=== PATIENT | male | born 1935 ===

== ENCOUNTER 2017-02-09 16:44 | Emergency (ER) | payer OTHER ==
[2017-02-09 16:57] VITALS: RESP 18
--- NOTE | 2017-02-09 17:45 | ED PDOC ---
HPI: Abdomen Time Seen by Provider: 02/09/17 17:20 Chief Complaint (Nursing): GI Problem Chief Complaint (Provider): Diarrhea History Per: Patient Additional Complaint(s): Patient is an 81 yo male, PMH of HTN, presents to ED for evaluation of loose, watery, non bloody stools ~ 5per day x 3 weeks. No associated nausea ro vomiting , no abdominal pain, fever or chills. Patient just returned 1 week ago from [place]. Pt saw a Dr while in [place] and was given Immodium. Past Medical History Reviewed: Nursing Documentation, Vital Signs Vital Signs: Last Vital Signs Temp 98.9 F 02/09/17 16:52 Pulse 84 02/09/17 16:52 Resp 18 02/09/17 16:52 BP 127/67 02/09/17 16:52 Pulse Ox 96 02/09/17 17:47 - Medical History PMH: HTN - Surgical History Surgical History: Hernia Repair - Family History Family History: States: Unknown Family Hx - Living Arrangements Living Arrangements: With Family - Social History Current smoker - smoking cessation education provided: No Alcohol: Social Drugs: Denies - Home Medications Home Medications: Ambulatory Orders Medication Instructions Recorded Ciprofloxacin [Cipro] 500 mg PO BID #6 tab 02/09/17 Dicyclomine [Bentyl] 10 mg PO QID PRN #10 cap 02/09/17 - Allergies Allergies/Adverse Reactions: Allergies Allergy/AdvReac Type Severity Reaction Status Date / Time aspirin Allergy RASH Verified 02/09/17 16:57 Penicillins Allergy RASH Verified 02/09/17 16:52 Review of Systems ROS Statement: Except As Marked, All Systems Reviewed And Found Negative Gastrointestinal: Positive for: Abdominal Pain, Diarrhea Physical Exam - Reviewed Nursing Documentation Reviewed: Yes Vital Signs Reviewed: Yes - Physical Exam Appears: Positive for: Well, Non-toxic, No Acute Distress Head Exam: Positive for: ATRAUMATIC, NORMAL INSPECTION, NORMOCEPHALIC Skin: Positive for: Normal Color, Warm, DRY Eye Exam: Positive for: EOMI, Normal appearance, PERRL ENT: Positive for: Normal ENT Inspection Neck: Positive for: Normal, Painless ROM Cardiovascular/Chest: Positive for: Regular Rate, Rhythm Respiratory: Positive for: CNT, Normal Breath Sounds Gastrointestinal/Abdominal: Positive for: Normal Exam, Bowel Sounds, Soft Back: Positive for: Normal Inspection Extremity: Positive for: Normal ROM Neurologic/Psych: Positive for: Alert, Oriented - Laboratory Results Result Diagrams: 02/09/17 17:43 02/09/17 17:43 - ECG O2 Sat by Pulse Oximetry: 96 Medical Decision Making Medical Decision Making: IV access established and treatment initiated with IVF and Bentyl Pt able to provide stool sample which was sent to lab CBC and COMP results discussed with pt who demonstrated full understanding Pt doing well on re-eval, abdomen soft non tender and non distended Pt afebrile, stable for discharge on re-eval Advised to follow up with PMD, return to ED with any concerns Disposition - Clinical Impression Clinical Impression: Diarrhea - Patient ED Disposition Is Patient to be Admitted: No - Disposition Disposition: Routine/Home Disposition Time: 19:14 Condition: STABLE Prescriptions: Ciprofloxacin [Cipro] 500 mg PO BID #6 tab Dicyclomine [Bentyl] 10 mg PO QID PRN #10 cap PRN Reason: Pain, Mild (1-3) Instructions: Acute Diarrhea (ED)
[2017-02-09 17:48] LABS: BASO # 0.1 K/uL (0.0-0.2); BASO % 0.7 % (0.0-2.0); EOS # 1.2 K/uL (0.0-0.7); EOS % 10.2 % (0.0-4.0); HEMOGLOBIN 13.8 g/dL (12.0-18.0); LYMPH # 1.7 K/uL (1.0-4.3); LYMPH % 14.5 % (20.0-40.0); MEAN CELL VOLUME 87.5 fl (80.0-94.0); MEAN CORPUSCULAR HEMOGLOBIN 28.6 pg (27.0-31.0); MEAN CORPUSCULAR HGB CONC 32.7 g/dL (33.0-37.0); MEAN PLATELET VOLUME 7.3 fl (7.2-11.7); MONO # 1.2 K/uL (0.0-0.8); NEUT # 7.6 K/uL (1.8-7.0); NEUT % 64.6 % (50.0-75.0); RBC 4.81 Mil/uL (4.40-5.90); RED CELL DISTRIBUTION WIDTH 13.8 % (11.5-14.5); WHITE BLOOD COUNT 11.7 K/uL (4.8-10.8)
[2017-02-09 18:00] LABS: ALB/GLOB RATIO 1.2 (1.0-2.1); ALBUMIN 4.3 g/dL (3.5-5.0)
[2017-02-09 19:32] VITALS: BP 111/72; PULSE 79; TEMP 98.7; O2SAT 98
[2017-02-09 19:46] LABS: URINE BACTERIA RARE (<OCC); URINE BILIRUBIN NEGATIVE (NEGATIVE); URINE BLOOD NEGATIVE (NEGATIVE); URINE CLARITY CLEAR (Clear); URINE COLOR YELLOW (YELLOW); URINE GLUCOSE (UA) NEG (Normal); URINE LEUKOCYTE ESTERASE NEG Leu/uL (Negative); URINE NITRATE NEGATIVE (NEGATIVE); URINE PROTEIN NEGATIVE (NEGATIVE); URINE UROBILINOGEN 0.2-1.0 mg/dL (0.2-1.0)
== END 2017-02-09 19:32 | disposition home or self-care (01) ==
LOC: H.ER 16:44
DX: R19.7 Diarrhea, unspecified (principal); I10 Essential (primary) hypertension

== ENCOUNTER 2017-02-23 18:01 | Emergency (ER) | payer MEDICARE, OTHER ==
[2017-02-23 18:09] VITALS: RESP 16; O2SAT 100
[2017-02-23] MEDS ORDERED: Ciprofloxacin 400mg/200ml D5W 400 MG/200 ML BAG IVPB STA (18:37)
--- NOTE | 2017-02-23 18:39 | ED PDOC ---
HPI: Abdomen Time Seen by Provider: 02/23/17 18:27 Chief Complaint (Nursing): GI Problem Chief Complaint (Provider): Diarrhea History Per: Patient Additional Complaint(s): 81 yo male, no PMH, presents to ED for the second time since 02/09 for evaluation of continued diarrhea x a few days. Pt was sent home on Cipro and Bentyl, which he states helped and then when medications complete, symptoms returned. No abdominal pain, fever, chills, nausea or vomiting. Past Medical History Reviewed: Nursing Documentation, Vital Signs Vital Signs: Last Vital Signs Temp 98.0 F 02/23/17 18:06 Pulse 86 02/23/17 18:06 Resp 16 02/23/17 18:06 BP 118/64 02/23/17 18:06 Pulse Ox 100 02/23/17 18:41 - Medical History PMH: HTN - Surgical History Surgical History: Hernia Repair - Family History Family History: States: Unknown Family Hx - Home Medications Home Medications: Ambulatory Orders Medication Instructions Recorded Ciprofloxacin [Cipro] 500 mg PO BID #6 tab 02/09/17 Dicyclomine [Bentyl] 10 mg PO QID PRN #10 cap 02/09/17 - Allergies Allergies/Adverse Reactions: Allergies Allergy/AdvReac Type Severity Reaction Status Date / Time aspirin Allergy RASH Verified 02/23/17 18:06 Iodine and Iodide Containing Allergy REDNESS Verified 02/23/17 19:03 Produc Penicillins Allergy RASH Verified 02/23/17 18:06 Review of Systems ROS Statement: Except As Marked, All Systems Reviewed And Found Negative Gastrointestinal: Positive for: Diarrhea Physical Exam - Reviewed Nursing Documentation Reviewed: Yes Vital Signs Reviewed: Yes - Physical Exam Appears: Positive for: Well, Non-toxic, No Acute Distress Head Exam: Positive for: ATRAUMATIC, NORMAL INSPECTION, NORMOCEPHALIC Skin: Positive for: Normal Color, Warm, DRY Eye Exam: Positive for: EOMI, Normal appearance, PERRL ENT: Positive for: Normal ENT Inspection Neck: Positive for: Normal, Painless ROM Cardiovascular/Chest: Positive for: Regular Rate, Rhythm Respiratory: Positive for: CNT, Normal Breath Sounds Gastrointestinal/Abdominal: Positive for: Normal Exam, Bowel Sounds, Soft. Negative for: Tenderness, Distended, Guarding Back: Positive for: Normal Inspection Extremity: Positive for: Normal ROM Neurologic/Psych: Positive for: Alert, Oriented - ECG O2 Sat by Pulse Oximetry: 100 Medical Decision Making Medical Decision Making: IV access established and treatment initiated with IVF, IV Cipro and Bentyl Stool sample neg for C. Diff on visit from 02/09 Case endorsed to [facility] at 1999 pending diagnostic review and re-eval Disposition - Clinical Impression Clinical Impression: Diarrhea - Patient ED Disposition Is Patient to be Admitted: [facility] - Disposition Disposition Time: 20:00 Condition: STABLE
[2017-02-23] MEDS ORDERED: Iohexol 240 (50 ml) PO ONE (18:41)
[2017-02-23] MEDS ORDERED: Ciprofloxacin 400mg/200ml D5W 400 MG/200 ML BAG IVPB ONE (18:43)
[2017-02-23 18:49] LABS: BASO % 0.6 % (0.0-2.0); EOS # 0.9 K/uL (0.0-0.7); EOS % 11.5 % (0.0-4.0); HEMOGLOBIN 13.7 g/dL (12.0-18.0); LYMPH # 1.5 K/uL (1.0-4.3); LYMPH % 19.4 % (20.0-40.0); MEAN CELL VOLUME 87.4 fl (80.0-94.0); MEAN CORPUSCULAR HEMOGLOBIN 28.8 pg (27.0-31.0); MEAN CORPUSCULAR HGB CONC 32.9 g/dL (33.0-37.0); MEAN PLATELET VOLUME 7.6 fl (7.2-11.7); MONO # 0.9 K/uL (0.0-0.8); MONO % 11.9 % (0.0-10.0); NEUT # 4.4 K/uL (1.8-7.0); NEUT % 56.6 % (50.0-75.0); RBC 4.76 Mil/uL (4.40-5.90); RED CELL DISTRIBUTION WIDTH 13.9 % (11.5-14.5); WHITE BLOOD COUNT 7.7 K/uL (4.8-10.8)
[2017-02-23] MEDS ORDERED: Iohexol 240 (50 ml) ONE (18:52)
[2017-02-23 18:55] LABS: ALB/GLOB RATIO 1.3 (1.0-2.1); ALBUMIN 4.5 g/dL (3.5-5.0); CALCIUM 9.1 mg/dL (8.4-10.2)
[2017-02-23 19:04] LABS: URINE BACTERIA FEW (<OCC); URINE BILIRUBIN NEGATIVE (NEGATIVE); URINE BLOOD NEGATIVE (NEGATIVE); URINE CLARITY CLEAR (Clear); URINE COLOR YELLOW (YELLOW); URINE GLUCOSE (UA) NEG (Normal); URINE LEUKOCYTE ESTERASE NEG Leu/uL (Negative); URINE NITRATE NEGATIVE (NEGATIVE); URINE PROTEIN NEGATIVE (NEGATIVE); URINE UROBILINOGEN 0.2-1.0 mg/dL (0.2-1.0)
[2017-02-23] MEDS ORDERED: Iohexol 300 50 ML ONE (20:21)
[2017-02-23] MEDS ORDERED: Sodium Chloride 0.9% 50 ML IV ONE (20:21)
--- NOTE | 2017-02-23 21:42 | CT ---
EXAM: CT Abdomen and Pelvis With Intravenous Contrast CLINICAL HISTORY: 81 years old, male; Signs and symptoms; Nausea and other: Diahhrea; Prior surgery; Surgery date: 6+ months; Surgery type: Hernia surgery; Additional info: Diarrhea and abdominal cramping since 02/09 TECHNIQUE: Axial computed tomography images of the abdomen and pelvis with intravenous contrast. This CT exam was performed using one or more of the following dose reduction techniques: automated exposure control, adjustment of the mA and/or kV according to patient size, and/or use of iterative reconstruction technique. Coronal and sagittal reformatted images were created and reviewed. CONTRAST: 95 mL of omnipaque administered intravenously. EXAM DATE/TIME: 02/23/2017 6:41 PM COMPARISON: There are no prior studies for comparison. FINDINGS: Lower thorax: The heart is mildly enlarged. There are fibrotic changes at the lung bases. There are multiple surgical clips at the right base. There is a small hiatal hernia ABDOMEN: Liver: There is fatty infiltration of the liver. Gallbladder and bile ducts: Gallbladder is partially distended. Common bile duct is prominent. Pancreas: Pancreas is mildly atrophic. Spleen: unremarkable Adrenals: unremarkable Kidneys and ureters: Right kidney and ureter are unremarkable. Left kidney is severely atrophic.There is no pelvocaliectasis or ureterectasis. Stomach and bowel: Stomach is almost empty. Rotation is normal. There is no obstruction. Appendix is unremarkable. Terminal ileum is unremarkable. There is contrast and air throughout the colon. There is sigmoid diverticulosis. There is mild mesenteric hyperemia adjacent to the sigmoid. Appendix: See stomach and bowel PELVIS: Bladder: Bladder is partially distended. There is bladder wall thickening. Reproductive: The prostate is enlarged.Seminal vesicles have the expected configuration. ABDOMEN and PELVIS: Intraperitoneal space: There is no free air or free fluid. Bones/joints: Bony structures are osteopenic.There are degenerative changes in the osseus structures. Soft tissues: There is a small fat containing umbilical hernia. There is a small nodular opacity in the left inguinal region. Vasculature: Aorta is mildly ectatic. There are vascular calcifications. There is narrowing at the origin of the celiac artery with mild poststenotic dilatation. There is calcified plaque at the origin of the superior mesenteric artery. There is plaque with marked narrowing and decreased perfusion of the left renal artery There is noncalcified plaque/mural thrombus in the infrarenal abdominal aorta. There are area is of ulceration. There is mild ectasia. Maximal diameter is approximately 2.9 cm. Proximal iliacs are prominent, 1.5 cm in diameter bilaterally. 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
--- NOTE | 2017-02-23 21:45 | ED PDOC ---
- Laboratory Results Result Diagrams: 02/23/17 18:42 02/23/17 18:39 - ECG O2 Sat by Pulse Oximetry: 100 - Progress ED Course And Treament: Case endorsed to contract technical writer from [facility] pending CT. EXAM: CT Abdomen and Pelvis With Intravenous Contrast CLINICAL HISTORY: 81 years old, male; Signs and symptoms; Nausea and other: Diahhrea; Prior surgery; Surgery date: 6+ months; Surgery type: Hernia surgery; Additional info: Diarrhea and abdominal cramping since 02/09 TECHNIQUE: Axial computed tomography images of the abdomen and pelvis with intravenous contrast. This CT exam was performed using one or more of the following dose reduction techniques : automated exposure control, adjustment of the mA and/or kV according to patient size, and/ or use of iterative reconstruction technique. Coronal and sagittal reformatted images were created and reviewed. CONTRAST: 95 mL of omnipaque administered intravenously. EXAM DATE/TIME: 02/23/2017 6:41 PM COMPARISON: There are no prior studies for comparison. FINDINGS: Lower thorax: The heart is mildly enlarged. There are fibrotic changes at the lung bases. There are multiple surgical clips at the right base. There is a small hiatal hernia ABDOMEN: Liver: There is fatty infiltration of the liver. Gallbladder and bile ducts: Gallbladder is partially distended. Common bile duct is prominent. Pancreas: Pancreas is mildly atrophic. Spleen: unremarkable Adrenals: unremarkable Kidneys and ureters: Right kidney and ureter are unremarkable. Left kidney is severely atrophic.There is no pelvocaliectasis or ureterectasis. Stomach and bowel: Stomach is almost empty. Rotation is normal. There is no obstruction. Appendix is unremarkable. Terminal ileum is unremarkable. There is contrast and air throughout the colon. There is sigmoid diverticulosis. There is mild mesenteric hyperemia adjacent to the sigmoid. Appendix: See stomach and bowel PELVIS: Bladder: Bladder is partially distended. There is bladder wall thickening. Reproductive: The prostate is enlarged.Seminal vesicles have the expected configuration. ABDOMEN and PELVIS: Intraperitoneal space: There is no free air or free fluid. Bones/joints: Bony structures are osteopenic.There are degenerative changes in the osseus structures. Soft tissues: There is a small fat containing umbilical hernia. There is a small nodular opacity in the left inguinal region. Vasculature: Aorta is mildly ectatic. There are vascular calcifications. There is narrowing at the origin of the celiac artery with mild poststenotic dilatation. There is calcified plaque at the origin of the superior mesenteric artery. There is plaque with marked narrowing and decreased perfusion of the left renal artery There is noncalcified plaque/mural thrombus in the infrarenal abdominal aorta. There are area is of ulceration. There is mild ectasia. Maximal diameter is approximately 2.9 cm. Proximal iliacs are prominent, 1.5 cm in diameter bilaterally. 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 Case discussed with ED attending Dr. Mcnally, who evaluated patient at bedside. Patient offered admission vs outpatient trial of Cipro, Flagyl; states he is feeling better and would like to go home. Vitals stable. Labs WNL. Patient given IV cipro, IV flagyl dose in ED, discharged with rx Cipro, Flagyl, Bentyl. Advised patient/family to follow up with PMD/GI. Return to ED for worsening/concerning symptoms. Disposition - Clinical Impression Clinical Impression: Diverticulitis - POA Present On Arrival: None - Disposition Referrals: Anuj Boo MD, PhD [Staff Provider] - Disposition: Routine/Home Disposition Time: 22:50 Condition: IMPROVED Prescriptions: Ciprofloxacin HCl [Cipro] 500 mg PO BID #20 tab Dicyclomine [Dicyclomine HCl] 10 mg PO QID PRN #10 cap PRN Reason: Pain, Mild (1-3) Metronidazole [Flagyl] 500 mg PO TID #30 tablet Instructions: Diverticulitis (ED) Print Language: MACEDONIAN
[2017-02-23] MEDS ORDERED: metroNIDAZOLE 500mg/100ml NS 100 ML IV STA (21:53)
[2017-02-23 23:14] VITALS: BP 135/80; PULSE 85; TEMP 97.9
== END 2017-02-23 23:15 | disposition home or self-care (01) ==
LOC: H.ER 18:01
DX: K57.30 Diverticulosis of large intestine without perforation or abscess without bleeding (principal); I10 Essential (primary) hypertension; K76.0 Fatty (change of) liver, not elsewhere classified; Z88.0 Allergy status to penicillin
CPT/HCPCS: 74177; 80053; 81003; 85025; 87045; 96360; 96372; 99284; J0500; J0744; Q9966; Q9967

== ENCOUNTER 2018-01-10 15:30 | Inpatient (IN) | payer MEDICARE, OTHER ==
[2018-01-10] MEDS ORDERED: Sodium Chloride 0.9% 1,000 ML IV STA ×2 (17:56→19:01)
[2018-01-10] MEDS ORDERED: Albuterol-Ipratrop 3 mg / 0.5 (3 ml) UD INH STA (17:56)
[2018-01-10 18:27] LABS: VENOUS BLOOD GAS BASE EXCESS 4.5 mmol/L (0.0-2.0); VENOUS BLOOD GAS PCO2 58 mmHg (40-60); VENOUS BLOOD GAS PO2 14 mm/Hg (30-55); VENOUS BLOOD PH 7.35 (7.32-7.43)
[2018-01-10] MEDS ORDERED: levoFLOXacin 750 mg in D5W 150 ML BAG IVPB STA (18:30)
[2018-01-10 18:39] LABS: BASO # 0.1 K/uL (0.0-0.2); BASO % 0.5 % (0.0-2.0); EOS % 0.2 % (0.0-4.0); HEMOGLOBIN 14.7 g/dL (12.0-18.0); LYMPH # 1.3 K/uL (1.0-4.3); LYMPH % 7.4 % (20.0-40.0); MEAN CELL VOLUME 85.3 fl (80.0-94.0); MEAN CORPUSCULAR HEMOGLOBIN 28.7 pg (27.0-31.0); MEAN CORPUSCULAR HGB CONC 33.7 g/dL (33.0-37.0); MEAN PLATELET VOLUME 7.6 fl (7.2-11.7); MONO # 1.9 K/uL (0.0-0.8); MONO % 10.3 % (0.0-10.0); NEUT # 14.9 K/uL (1.8-7.0); NEUT % 81.6 % (50.0-75.0); PLATELET COUNT 218 K/uL (130-400); RBC 5.11 Mil/uL (4.40-5.90); RED CELL DISTRIBUTION WIDTH 13.9 % (11.5-14.5); WHITE BLOOD COUNT 18.3 K/uL (4.8-10.8)
[2018-01-10] MEDS ORDERED: Albuterol-Ipratrop 3 mg / 0.5 (3 ml) UD ONE (18:43)
[2018-01-10] MEDS ORDERED: levoFLOXacin 750 mg in D5W 750 MG/150 ML BAG IVPB ONE (18:45)
[2018-01-10 18:48] LABS: ALBUMIN 4.5 g/dL (3.5-5.0); ALT/SGPT 26 U/L (21-72); AST/SGOT 26 U/L (17-59); BLOOD UREA NITROGEN 23 mg/dl (9-20); CALCIUM 9.6 mg/dL (8.4-10.2); GFR AFRICAN-AMERICAN 54; GFR NON-AFRICAN AMERICAN 45
[2018-01-10 18:55] LABS: URINE BILIRUBIN NEGATIVE (NEGATIVE); URINE CLARITY CLEAR (Clear); URINE COLOR YELLOW (YELLOW); URINE GLUCOSE (UA) NEG (Normal); URINE LEUKOCYTE ESTERASE NEG Leu/uL (Negative); URINE PROTEIN 30 mg/dL (NEGATIVE)
[2018-01-10 18:56] LABS: URINE BLOOD TRACE (NEGATIVE)
[2018-01-10 18:58] LABS: INR 1.1 (0.9-1.2); PARTIAL THROMBOPLASTIN TIME 28.1 Seconds (25.6-37.1); PROTHROMBIN TIME 12.1 Seconds (9.8-13.1)
[2018-01-10 19:00] LABS: B-TYPE NATRIURETIC PEPTIDE 156 pg/ml (0-900)
[2018-01-10] MEDS ORDERED: MethylPREDNISolone 40 mg Vial IVP ONE (19:04)
--- NOTE | 2018-01-10 19:07 | ED PDOC ---
HPI: General Adult Time Seen by Provider: 01/10/18 17:08 Chief Complaint (Nursing): Fever Chief Complaint (Provider): fever cough weakness History Per: Patient, Family History/Exam Limitations: no limitations Onset/Duration Of Symptoms: Days (4-5), Gradual Current Symptoms Are (Timing): Still Present Severity: Moderate Additional Complaint(s): 82yo male hx chronic lung disease, HTN, presents c/o cough, fever, generalized weakness and SOB ongoing for 3-4 days. Denies syncope, orthopnea, edema. No recent Abx or steroid use, does take advair BID. Gets primary care in [place], in for last several months. Past Medical History Reviewed: Historical Data, Nursing Documentation, Vital Signs Vital Signs: Last Vital Signs Temp 100.0 F H 01/10/18 18:46 Pulse 120 H 01/10/18 17:49 Resp 22 01/10/18 17:49 BP 138/73 01/10/18 17:49 Pulse Ox 96 01/10/18 17:49 - Medical History PMH: COPD, HTN Denies: Chronic Kidney Disease - Surgical History Surgical History: Hernia Repair - Family History Family History: States: Unknown Family Hx - Living Arrangements Living Arrangements: With Family - Social History Current smoker - smoking cessation education provided: No - Immunization History Hx Tetanus Toxoid Vaccination: No Hx Influenza Vaccination: Yes Hx Pneumococcal Vaccination: Yes - Home Medications Home Medications: Ambulatory Orders Medication Instructions Recorded Ciprofloxacin [Cipro] 500 mg PO BID #6 tab 02/09/17 Dicyclomine [Bentyl] 10 mg PO QID PRN #10 cap 02/09/17 Ciprofloxacin HCl [Cipro] 500 mg PO BID #20 tab 02/23/17 Dicyclomine [Dicyclomine HCl] 10 mg PO QID PRN #10 cap 02/23/17 Metronidazole [Flagyl] 500 mg PO TID #30 tablet 02/23/17 - Allergies Allergies/Adverse Reactions: Allergies Allergy/AdvReac Type Severity Reaction Status Date / Time aspirin Allergy RASH Verified 02/23/17 18:06 Iodine and Iodide Containing Allergy REDNESS Verified 02/23/17 19:03 Produc Penicillins Allergy RASH Verified 02/23/17 18:06 Review of Systems Constitutional: Positive for: Fever, Weakness, Malaise ENT: Positive for: Throat Pain Cardiovascular: Negative for: Chest Pain, Orthopnea Respiratory: Positive for: Cough, Shortness of Breath, SOB with Exertion, Pleuritic Pain, Sputum, Wheezing Gastrointestinal: Negative for: Nausea, Abdominal Pain Genitourinary Male: Negative for: Frequency Musculoskeletal: Negative for: Neck Pain Skin: Negative for: Rash, Lesions, Jaundice Neurological: Negative for: Weakness, Headache, Dizziness Psych: Negative for: Depression Physical Exam - Reviewed Nursing Documentation Reviewed: Yes Vital Signs Reviewed: Yes - Physical Exam Appears: Positive for: Well, Non-toxic, No Acute Distress Head Exam: Positive for: ATRAUMATIC, NORMAL INSPECTION, NORMOCEPHALIC Skin: Positive for: Normal Color, Warm, DRY Eye Exam: Positive for: EOMI, Normal appearance, PERRL ENT: Positive for: Normal ENT Inspection Neck: Positive for: Normal, Painless ROM Cardiovascular/Chest: Positive for: Regular Rate, Rhythm Respiratory: Positive for: Decreased Breath Sounds, Rhonchi, Respiratory Distress (mild) Gastrointestinal/Abdominal: Positive for: Normal Exam, Soft Back: Positive for: Normal Inspection Extremity: Positive for: Normal ROM Neurologic/Psych: Positive for: Alert, Oriented - Laboratory Results Result Diagrams: 01/10/18 18:32 01/10/18 18:32 - ECG ECG: Positive for: Interpreted By Ms ECG Rhythm: Positive for: Sinus Tachycardia, Nonspecific Changes Rate: 115 O2 Sat by Pulse Oximetry: 96 Pulse Ox Interpretation: Normal - Radiology X-Ray: Interpreted by Ms X-Ray Interpretation: Infiltrates Medical Decision Making Medical Decision Making: sepsis workup initiated given low grade fever, tachycardia, clinical presentation labs reveal elevated WBC at 18 Lactate elev 2.5 BNP neg Abx initiated, allergic PCN Cultures obtained prior to Abx initiation 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 This is because of the severity of symptoms shown, intensity of services needed, and/or the medical risk in this patient being treated as an outpatient. - POA Present On Arrival: None
[2018-01-10 19:52] LABS: VENOUS BLOOD GAS BASE EXCESS 3.1 mmol/L (0.0-2.0); VENOUS BLOOD GAS PCO2 53 mmHg (40-60); VENOUS BLOOD GAS PO2 16 mm/Hg (30-55); VENOUS BLOOD PH 7.36 (7.32-7.43)
[2018-01-10 20:43] LABS: LYMPHOCYTE 3 % (20-50); MONOCYTE 5 % (0-10); NEUTROPHIL 84 % (42-75); REACTIVE LYMPHOCYTES 8 % (0-0); TOTAL CELLS COUNTED 100
[2018-01-10 20:44] LABS: PLATELET ESTIMATE NORMAL (NORMAL)
[2018-01-11] MEDS ORDERED: Sodium Chloride 0.9% 1,000 ML IV STA (00:19)
[2018-01-11] MEDS ORDERED: MethylPREDNISolone 40 mg Vial ONE (00:23)
[2018-01-11] MEDS ORDERED: Sodium Chloride 3% for Inhalation 4 ML VIAL.NEB IH PRN (06:11)
[2018-01-11] MEDS: Dextrose 5%/0.45% NS 1,000 ML IV SCH ×2 (06:22→21:08)
[2018-01-11 07:47] LABS: HEMOGLOBIN 13.5 g/dL (12.0-18.0); MEAN CELL VOLUME 85.5 fl (80.0-94.0); MEAN CORPUSCULAR HEMOGLOBIN 28.5 pg (27.0-31.0); MEAN CORPUSCULAR HGB CONC 33.3 g/dL (33.0-37.0); RBC 4.75 Mil/uL (4.40-5.90); RED CELL DISTRIBUTION WIDTH 14.1 % (11.5-14.5); WHITE BLOOD COUNT 15.1 K/uL (4.8-10.8)
[2018-01-11 08:03] LABS: CALCIUM 9.2 mg/dL (8.4-10.2)
[2018-01-11] MEDS: Albuterol-Ipratrop 3 mg / 0.5 (3 ml) UD INH SCH ×3 (08:13→15:38)
--- NOTE | 2018-01-11 08:24 | CP.PCM.HP ---
History of Present Illness - History of Present Illness History of Present Illness: 82 yr old male with c/o fever,chills and sob with cough x 4v days.Hx of chronic pulmonary disease and hypertension. Recently arrived from [place]. FOUND TO HAVE LOW BLOOD PRESSURE AND EVIDENCE OF SEPSIS IN ER. Present on Admission - Present on Admission Any Indicators Present on Admission: No Past Patient History - Past Social History Smoking Status: Former Smoker - CARDIAC Hx Cardiac Disorders: Yes Hx Hypertension: Yes - PULMONARY Hx Chronic Obstructive Pulmonary Disease (COPD): Yes - NEUROLOGICAL Hx Neurological Disorder: No - HEENT Hx HEENT Problems: No - RENAL Hx Chronic Kidney Disease: No - ENDOCRINE/METABOLIC Hx Endocrine Disorders: No - HEMATOLOGICAL/ONCOLOGICAL Hx Blood Disorders: No - INTEGUMENTARY Hx Dermatological Problems: No - MUSCULOSKELETAL/RHEUMATOLOGICAL Hx Falls: Yes - GASTROINTESTINAL Hx Gastrointestinal Disorders: No - GENITOURINARY/GYNECOLOGICAL Hx Genitourinary Disorders: No - PSYCHIATRIC Hx Substance Use: No - SURGICAL HISTORY Hx Surgeries: Yes Hx Herniorrhaphy: Yes - ANESTHESIA Hx Anesthesia: Yes Hx Anesthesia Reactions: No Hx Malignant Hyperthermia: No Meds Allergies/Adverse Reactions: Allergies Allergy/AdvReac Type Severity Reaction Status Date / Time aspirin Allergy RASH Verified 02/23/17 18:06 Iodine and Iodide Containing Allergy REDNESS Verified 02/23/17 19:03 Produc Penicillins Allergy RASH Verified 02/23/17 18:06 Physical Exam - Constitutional Appears: Chronically Ill - Head Exam Head Exam: ATRAUMATIC, NORMAL INSPECTION, NORMOCEPHALIC - Eye Exam Eye Exam: EOMI, Normal appearance, PERRL Pupil Exam: NORMAL ACCOMODATION, PERRL - ENT Exam ENT Exam: Mucous Membranes Moist, Normal Exam - Neck Exam Neck exam: Positive for: Normal Inspection - Respiratory Exam Respiratory Exam: Decreased Breath Sounds, Prolonged Expiratory Phase, Rales, Wheezes, NORMAL BREATHING PATTERN - Cardiovascular Exam Cardiovascular Exam: REGULAR RHYTHM - GI/Abdominal Exam GI & Abdominal Exam: Normal Bowel Sounds, Soft. absent: Tenderness - Rectal Exam Rectal Exam: NORMAL INSPECTION - Extremities Exam Extremities exam: Positive for: normal inspection - Back Exam Back exam: NORMAL INSPECTION - Neurological Exam Neurological exam: Alert, CN II-XII Intact, Normal Gait, Oriented x3, Reflexes Normal - Psychiatric Exam Psychiatric exam: Normal Affect, Normal Mood - Skin Skin Exam: Dry, Intact, Normal Color, Warm Results - Vital Signs Recent Vital Signs: Last Vital Signs Temp 97.4 F L 01/11/18 07:50 Pulse 57 L 01/11/18 07:50 Resp 18 01/11/18 07:50 BP 95/57 L 01/11/18 07:50 Pulse Ox 100 01/11/18 07:50 - Labs Result Diagrams: 01/11/18 07:30 01/11/18 07:30 Labs: Laboratory Results - last 24 hr 01/10/18 01/10/18 01/10/18 18:23 18:32 18:32 WBC 18.3 H D RBC 5.11 Hgb 14.7 Hct 43.6 MCV 85.3 D MCH 28.7 MCHC 33.7 RDW 13.9 Plt Count 218 MPV 7.6 Neut % (Auto) 81.6 H Lymph % (Auto) 7.4 L [place] % (Auto) 10.3 H Eos % (Auto) 0.2 Baso % (Auto) 0.5 Neut # (Auto) 14.9 H Lymph # (Auto) 1.3 [place] # (Auto) 1.9 H Eos # (Auto) 0.0 Baso # (Auto) 0.1 Neutrophils % (Manual) 84 H Lymphocytes % (Manual) 3 L Reactive Lymphs % 8 H Monocytes % (Manual) 5 Platelet Estimate Normal RBC Morphology Normal PT INR APTT pO2 14 L VBG pH 7.35 VBG pCO2 58 VBG HCO3 26.1 VBG Total CO2 33.8 H VBG O2 Sat (Calc) 25.1 L VBG Base Excess 4.5 H VBG Potassium 4.7 Sodium 136.0 140 Chloride 98.0 96 L Glucose 113 H Lactate 2.5 H FiO2 21.0 Crit Value Called To dr rui sky Crit Value Called By Blood Gas Notified Time 1829 Potassium 4.9 Carbon Dioxide 28 Anion Gap 21 H BUN 23 H Creatinine 1.5 Est GFR ( Amer) 54 Est GFR (Non-Af Amer) 45 Random Glucose 113 H Lactic Acid Calcium 9.6 Total Bilirubin 1.2 AST 26 ALT 26 Alkaline Phosphatase 76 Troponin I < 0.0120 NT-Pro-B Natriuret Pep 156 Total Protein 9.0 H Albumin 4.5 Globulin 4.5 H Albumin/Globulin Ratio 1.0 Venous Blood Potassium 4.7 Urine Color Urine Clarity Urine pH Ur Specific [place] Urine Protein Urine Glucose (UA) Urine Ketones Urine Blood Urine Nitrate Urine Bilirubin Urine Urobilinogen Ur Leukocyte Esterase Urine RBC (Auto) Urine Microscopic WBC 01/10/18 01/10/18 01/10/18 18:32 18:39 19:29 WBC RBC Hgb Hct MCV MCH MCHC RDW Plt Count MPV Neut % (Auto) Lymph % (Auto) [place] % (Auto) Eos % (Auto) Baso % (Auto) Neut # (Auto) Lymph # (Auto) [place] # (Auto) Eos # (Auto) Baso # (Auto) Neutrophils % (Manual) Lymphocytes % (Manual) Reactive Lymphs % Monocytes % (Manual) Platelet Estimate RBC Morphology PT 12.1 INR 1.1 APTT 28.1 pO2 16 L VBG pH 7.36 VBG pCO2 53 VBG HCO3 25.2 VBG Total CO2 31.5 H VBG O2 Sat (Calc) 27.3 L VBG Base Excess 3.1 H VBG Potassium 4.4 Sodium 135.0 Chloride 97.0 L Glucose 138 H Lactate 2.9 H FiO2 21.0 Crit Value Called To dr rui sky Crit Value Called By Blood Gas Notified Time 1951 Potassium Carbon Dioxide Anion Gap BUN Creatinine Est GFR ( Amer) Est GFR (Non-Af Amer) Random Glucose Lactic Acid Calcium Total Bilirubin AST ALT Alkaline Phosphatase Troponin I NT-Pro-B Natriuret Pep Total Protein Albumin Globulin Albumin/Globulin Ratio Venous Blood Potassium 4.4 Urine Color Yellow Urine Clarity Clear Urine pH 7.0 Ur Specific [place] 1.024 Urine Protein 30 Urine Glucose (UA) Neg Urine Ketones Negative Urine Blood Trace Urine Nitrate Negative Urine Bilirubin Negative Urine Urobilinogen 4.0 Ur Leukocyte Esterase Neg Urine RBC (Auto) 12 H Urine Microscopic WBC 1 01/11/18 01/11/18 01/11/18 07:30 07:30 07:30 WBC 15.1 H RBC 4.75 Hgb 13.5 Hct 40.6 MCV 85.5 MCH 28.5 MCHC 33.3 RDW 14.1 Plt Count 196 MPV Neut % (Auto) Lymph % (Auto) [place] % (Auto) Eos % (Auto) Baso % (Auto) Neut # (Auto) Lymph # (Auto) [place] # (Auto) Eos # (Auto) Baso # (Auto) Neutrophils % (Manual) Lymphocytes % (Manual) Reactive Lymphs % Monocytes % (Manual) Platelet Estimate RBC Morphology PT INR APTT pO2 VBG pH VBG pCO2 VBG HCO3 VBG Total CO2 VBG O2 Sat (Calc) VBG Base Excess VBG Potassium Sodium 144 Chloride 105 Glucose Lactate FiO2 Crit Value Called To Crit Value Called By Blood Gas Notified Time Potassium 5.1 H Carbon Dioxide 23 Anion Gap 21 H BUN 24 H Creatinine 1.4 Est GFR ( Amer) 59 Est GFR (Non-Af Amer) 49 Random Glucose 169 H Lactic Acid 2.2 H Calcium 9.2 Total Bilirubin AST ALT Alkaline Phosphatase Troponin I NT-Pro-B Natriuret Pep Total Protein Albumin Globulin Albumin/Globulin Ratio Venous Blood Potassium Urine Color Urine Clarity Urine pH Ur Specific [place] Urine Protein Urine Glucose (UA) Urine Ketones Urine Blood Urine Nitrate Urine Bilirubin Urine Urobilinogen Ur Leukocyte Esterase Urine RBC (Auto) Urine Microscopic WBC Assessment & Plan - Assessment and Plan (Free Text) Assessment: sepsis acute exac of pulmonary fibrosis and copd r/o superimposed community acquired pneumonia hx of hypertension Plan: continue rx as ordered infectious dz fredial
--- NOTE | 2018-01-11 08:44 | RAD ---
HISTORY: cough fever COMPARISON: Portable chest 04/07/2011. TECHNIQUE: Chest PA and lateral FINDINGS: LUNGS: No definite acute infiltrate bilaterally. Chronic fibrotic changes are again seen primarily at the bases with emphysematous changes reiterated at the upper lung zones bilaterally. Calcified granuloma partially obscured by telemetry leads in the right upper lung zone laterally. PLEURA: No significant pleural effusion identified. No pneumothorax apparent. CARDIOVASCULAR: Normal. OSSEOUS STRUCTURES: No significant abnormalities. VISUALIZED UPPER ABDOMEN: Normal. OTHER FINDINGS: None. IMPRESSION: Stable COPD and extensive chronic interstitial pulmonary changes without significant interval change compared to 04/07/2011.
[2018-01-11] MEDS ORDERED: Vancomycin 1 g Inj IVPB SCH (09:00)
[2018-01-11] MEDS ORDERED: methylPREDNISolone 40 MG in Sodium Chloride 0.9% 50 ML IVPB SCH (09:00)
[2018-01-11] MEDS: Fluticasone-Salmeterol 250-50mcg Diskus INH SCH ×2 (09:05→21:10)
[2018-01-11] MEDS: Enoxaparin 40 mg Syringe SC SCH (09:06)
[2018-01-11] MEDS: levoFLOXacin 500 mg in D5W 500 MG/100 ML BAG IVPB SCH (09:06)
[2018-01-11] MEDS: MethylPREDNISolone 40 mg Vial IVP SCH ×2 (09:26→21:09)
[2018-01-11] MEDS ORDERED: Levalbuterol 0.63 MG/3 ML Inhal Soln UD IH PRN (15:50)
--- NOTE | 2018-01-11 17:20 | CARD ---
APPROVED REPORT EKG Measurement Heart [id number] <Conclusion> Sinus tachycardia Otherwise normal ECG
[2018-01-12 06:38] LABS: CALCIUM 8.7 mg/dL (8.4-10.2)
[2018-01-12 06:43] LABS: BASO % 0.1 % (0.0-2.0); HEMOGLOBIN 11.9 g/dL (12.0-18.0); LYMPH # 0.7 K/uL (1.0-4.3); LYMPH % 3.7 % (20.0-40.0); MEAN CELL VOLUME 86.1 fl (80.0-94.0); MEAN CORPUSCULAR HEMOGLOBIN 28.6 pg (27.0-31.0); MEAN CORPUSCULAR HGB CONC 33.2 g/dL (33.0-37.0); MEAN PLATELET VOLUME 7.8 fl (7.2-11.7); MONO # 0.7 K/uL (0.0-0.8); MONO % 3.7 % (0.0-10.0); NEUT # 16.7 K/uL (1.8-7.0); NEUT % 92.5 % (50.0-75.0); NRBC % 0.1 % (0.0-0.0); PLATELET COUNT 200 K/uL (130-400); RBC 4.15 Mil/uL (4.40-5.90); WHITE BLOOD COUNT 18.1 K/uL (4.8-10.8)
[2018-01-12 07:11] LABS: BANDS 1 % (0-2); LYMPHOCYTE 3 % (20-50); MONOCYTE 2 % (0-10); NEUTROPHIL 94 % (42-75); PLATELET ESTIMATE NORMAL (NORMAL); TOTAL CELLS COUNTED 100
--- NOTE | 2018-01-12 08:38 | CON ---
INFECTIOUS DISEASE CONSULT DATE: HISTORY OF PRESENT ILLNESS: The patient is an 82-year-old male who came to the emergency with a 4-day history of fever, chills, and shortness of breath with productive cough. PAST MEDICAL HISTORY: The patient has a past history of COPD and hypertension. Apparently, he came here recently from [place]. No history of syncope or orthopnea. MEDICATIONS: Include Advair. SOCIAL HISTORY: The patient is a smoker and lives with his family. FAMILY HISTORY: He is not aware of his family history. PHYSICAL EXAMINATION: HEENT: Within normal limits. He states he has some difficulty swallowing. Atraumatic and normocephalic. NECK: Supple. HEART: Regular sinus rhythm. LUNGS: He has decreased breath sounds and rhonchi bilaterally. Apparently when he came in, he was in some respiratory distress. EXTREMITIES: No CCE. LABORATORY DATA: Cultures are pending. No previous cultures. Creatinine is 1.4. GFR is 49. WBC is 18.3 and followup is 15.1 and sed rate is 61. ASSESSMENT AND PLAN: At the present time, the patient has been placed on Levaquin and vancomycin. I have added clindamycin today. We will likely discontinue vancomycin tomorrow, but we will reevaluate at that time. Mango Chavez MD
--- NOTE | 2018-01-12 09:18 | CP.PCM.PN ---
Subjective - Date & Time of Evaluation Date of Evaluation: 01/12/18 Time of Evaluation: 09:18 - Subjective Subjective: FEELING BETTER OOB TO CHAIR COUGH AND SOB LESS Objective - Vital Signs/Intake and Output Vital Signs (last 24 hours): Temp Pulse Resp BP Pulse Ox 97.5 F L 80 18 125/74 98 01/12/18 07:59 01/12/18 07:59 01/12/18 07:59 01/12/18 07:59 01/12/18 07:59 - Medications Medications: Current Medications Enoxaparin Sodium (Lovenox) 40 mg SC DAILY JIN PRN Reason: Protocol Last Admin: 01/11/18 09:06 Dose: 40 mg Levofloxacin/Dextrose (Levaquin 500mg) 500 mg in 100 mls @ 100 mls/hr IVPB DAILY JIN PRN Reason: Protocol Last Admin: 01/11/18 09:06 Dose: 100 mls/hr Vancomycin HCl 1 gm/ Sodium (Chloride) 250 mls @ 166.667 mls/hr IVPB Q12 JIN Last Admin: 01/11/18 21:09 Dose: 166.667 mls/hr Clindamycin Phosphate (Cleocin) 600 mg in 50 mls @ 50 mls/hr IVPB Q12 JIN PRN Reason: Protocol Levalbuterol HCl (Xopenex) 0.63 mg IH Q8 PRN PRN Reason: Wheezing Methylprednisolone (Solu-Medrol) 40 mg IVP Q12 JIN Last Admin: 01/11/18 21:09 Dose: 40 mg Fluticasone/Salmeterol (Advair Diskus 250/50) 1 puff INH Q12 JIN Last Admin: 01/11/18 21:10 Dose: 1 puff - Labs Labs: 01/12/18 05:25 01/12/18 05:25 PT 12.1 Seconds (9.8-13.1) 01/10/18 18:32 INR 1.1 (0.9-1.2) 01/10/18 18:32 APTT 28.1 Seconds (25.6-37.1) 01/10/18 18:32 - Constitutional Appears: No Acute Distress - Head Exam Head Exam: ATRAUMATIC, NORMAL INSPECTION, NORMOCEPHALIC - Eye Exam Eye Exam: EOMI, Normal appearance, PERRL Pupil Exam: NORMAL ACCOMODATION, PERRL - ENT Exam ENT Exam: Mucous Membranes Moist, Normal Exam - Neck Exam Neck Exam: Full ROM, Normal Inspection. absent: Lymphadenopathy - Respiratory Exam Respiratory Exam: Decreased Breath Sounds, Prolonged Expiratory Phase, Rales, NORMAL BREATHING PATTERN - Cardiovascular Exam Cardiovascular Exam: REGULAR RHYTHM, +S1, +S2. absent: Murmur - GI/Abdominal Exam GI & Abdominal Exam: Soft, Normal Bowel Sounds. absent: Tenderness - Rectal Exam Rectal Exam: NORMAL INSPECTION - Extremities Exam Extremities Exam: Full ROM, Normal Capillary Refill, Normal Inspection. absent : Joint Swelling, Pedal Edema - Back Exam Back Exam: NORMAL INSPECTION - Neurological Exam Neurological Exam: Alert, Awake, CN II-XII Intact, Normal Gait, Oriented x3 - Psychiatric Exam Psychiatric exam: Normal Affect, Normal Mood - Skin Skin Exam: Dry, Intact, Normal Color, Warm Assessment and Plan - Assessment and Plan (Free Text) Assessment: ACUTE EXAC OF PULM FIBROSIS URI HTN--IMP[ROVING Plan: CONTINUE PRESENT RX
[2018-01-12] MEDS: levoFLOXacin 500 mg in D5W 500 MG/100 ML BAG IVPB SCH (09:40)
[2018-01-12] MEDS: MethylPREDNISolone 40 mg Vial IVP SCH ×2 (09:41→21:22)
[2018-01-12] MEDS: Fluticasone-Salmeterol 250-50mcg Diskus INH SCH ×2 (09:41→21:22)
[2018-01-12] MEDS: Enoxaparin 40 mg Syringe SC SCH (09:43)
--- NOTE | 2018-01-12 12:28 | RAD ---
HISTORY: pneumonia COMPARISON: Chest radiographs 01/10/2018. TECHNIQUE: Chest PA and lateral FINDINGS: LUNGS: No definitive acute cardiopulmonary disease appreciable this time. Extensive COPD and for chronic pulmonary changes are reiterated particularly at the left base. PLEURA: No significant pleural effusion identified. No pneumothorax apparent. CARDIOVASCULAR: Normal. OSSEOUS STRUCTURES: No significant abnormalities. VISUALIZED UPPER ABDOMEN: Normal. OTHER FINDINGS: None. IMPRESSION: COPD and advanced pulmonary fibrosis are reiterated. Definitive interval alveolitis is not clearly identified at this time.
[2018-01-12] MEDS: Clindamycin 600mg/50ml D5W 600 MG/50 ML VIAL IVPB SCH ×2 (14:20→21:00)
--- NOTE | 2018-01-12 14:52 | PQF GENQUE ---
Dr. Salazar, Please specify type of pneumonia in the progress notes: if ruled in and if known ---- versus Pneumonia ruled out? i.e Aspiration pneumonia Please document specific aspirate (food, liquids, etc.) Please indicate if this is postprocedural Bacterial (specify organism) Bronchopneumonia (specify organism) Interstitual pneumonia Organizing pneumonia/BOOP Pneumonia with influenza, edvin flu, or H1N1 flu RSV pneumonia Tuberculosis, pulmonary Viral pneumonia Other pneumonia (specify organism or type) Clinically unable to determine Unknown Note: Probable and suspected conditions can be coded as if they exist if still documented at the time of discharge. 2.. Please specify the organism causing the pneumonia: if known 01/11: CXR:IMPRESSION: Stable COPD and extensive chronic interstitial pulmonary changes without significant interval change compared to 04/07/2011. 01/12: CXR:Impression:COPD and advanced pulmonary fibrosis are reiterated. Definitive interval alveolitis is not clearly identified at this time. H and P: Assessment: sepsis ,acute exac of pulmonary fibrosis and copd , r/o superimposed community acquired pneumonia 01/12 Attending progress note: Assessment: ACUTE EXAC OF PULM FIBROSIS URI HTN-- IMP[ROVING Note: CAP, HAP, and HCAP indicate where the pneumonia was acquired, not a specific type. This form is a permanent part of the medical record Clarification of your documentation is requested to better reflect the severity of illness and intensity of treatment of your patient. Indicators present [x] Specify: []pneumonia--clinically unable to determine [x] Specify: [] acute exacerbation of pulmonary fibrosis [x] Specify: [] sepsis [] Specify: [] Location in the medical record that reflects the above clinical findings: [] Treatment Provided: [] PHYSICIAN'S RESPONSE Based on your medical judgment of the clinical indicators outlined above please clarify the following: [] Practitioner response [] If unable to determine, please check the box, sign and date. Present On Admission (POA) Indicator: [] Present at the time of admission [] Not present at the time of admission [] Clinically Undetermined In responding to this query, please exercise your independent professional judgment. The fact that a question is asked does not imply that any particular answer is desired or expected. Thank you for your clarification on this documentation. If you have any questions please call. * Thank you, Makenzie Michelle RN ext. #[phone] MTDD
[2018-01-13] MEDS: Fluticasone-Salmeterol 250-50mcg Diskus INH SCH ×2 (09:56→21:05)
[2018-01-13] MEDS: Clindamycin 600mg/50ml D5W 600 MG/50 ML VIAL IVPB SCH ×2 (09:56→20:53)
[2018-01-13] MEDS: Enoxaparin 40 mg Syringe SC SCH (09:58)
[2018-01-13] MEDS: levoFLOXacin 500 mg in D5W 500 MG/100 ML BAG IVPB SCH (09:59)
[2018-01-13] MEDS: MethylPREDNISolone 40 mg Vial IVP SCH (10:00)
--- NOTE | 2018-01-13 13:19 | CP.PCM.PN ---
Subjective - Date & Time of Evaluation Date of Evaluation: 01/13/18 Time of Evaluation: 13:19 - Subjective Subjective: FEELING BETTER COUGH AND SOB IMPROVED LEUKOCYTOSIS PERSIST Objective - Vital Signs/Intake and Output Vital Signs (last 24 hours): Temp Pulse Resp BP Pulse Ox 97.4 F L 74 20 115/66 96 01/13/18 12:34 01/13/18 12:34 01/13/18 12:34 01/13/18 12:34 01/13/18 12:34 - Medications Medications: Current Medications Enoxaparin Sodium (Lovenox) 40 mg SC DAILY JIN PRN Reason: Protocol Last Admin: 01/13/18 09:58 Dose: 40 mg Levofloxacin/Dextrose (Levaquin 500mg) 500 mg in 100 mls @ 100 mls/hr IVPB DAILY JIN PRN Reason: Protocol Last Admin: 01/13/18 09:59 Dose: 100 mls/hr Vancomycin HCl 1 gm/ Sodium (Chloride) 250 mls @ 166.667 mls/hr IVPB Q12 JIN Last Admin: 01/13/18 09:57 Dose: 166.667 mls/hr Clindamycin Phosphate (Cleocin) 600 mg in 50 mls @ 50 mls/hr IVPB Q12 JIN PRN Reason: Protocol Last Admin: 01/13/18 09:56 Dose: 50 mls/hr Levalbuterol HCl (Xopenex) 0.63 mg IH Q8 PRN PRN Reason: Wheezing Methylprednisolone (Solu-Medrol) 40 mg IVP Q12 [facility] Last Admin: 01/13/18 10:00 Dose: 40 mg Fluticasone/Salmeterol (Advair Diskus 250/50) 1 puff INH Q12 JIN Last Admin: 01/13/18 09:56 Dose: 1 puff - Labs Labs: 01/12/18 05:25 01/12/18 05:25 PT 12.1 Seconds (9.8-13.1) 01/10/18 18:32 INR 1.1 (0.9-1.2) 01/10/18 18:32 APTT 28.1 Seconds (25.6-37.1) 01/10/18 18:32 - Constitutional Appears: No Acute Distress - Head Exam Head Exam: ATRAUMATIC, NORMAL INSPECTION, NORMOCEPHALIC - Eye Exam Eye Exam: EOMI, Normal appearance, PERRL Pupil Exam: NORMAL ACCOMODATION, PERRL - ENT Exam ENT Exam: Mucous Membranes Moist, Normal Exam - Neck Exam Neck Exam: Full ROM, Normal Inspection. absent: Lymphadenopathy - Respiratory Exam Respiratory Exam: Decreased Breath Sounds, Prolonged Expiratory Phase, Rales, NORMAL BREATHING PATTERN - Cardiovascular Exam Cardiovascular Exam: REGULAR RHYTHM, +S1, +S2. absent: Murmur - GI/Abdominal Exam GI & Abdominal Exam: Soft, Normal Bowel Sounds. absent: Tenderness - Rectal Exam Rectal Exam: NORMAL INSPECTION - Extremities Exam Extremities Exam: Full ROM, Normal Capillary Refill, Normal Inspection. absent : Joint Swelling, Pedal Edema - Back Exam Back Exam: NORMAL INSPECTION - Neurological Exam Neurological Exam: Alert, Awake, CN II-XII Intact, Normal Gait, Oriented x3 - Psychiatric Exam Psychiatric exam: Normal Affect, Normal Mood - Skin Skin Exam: Dry, Intact, Normal Color, Warm Assessment and Plan - Assessment and Plan (Free Text) Assessment: ACUTE EXAC OF COPD URI HTN LEUKOCYTOSIS Plan: CONTINUE CURRENT THERAPY D/C IN AM IF STABLE
[2018-01-13 16:36] VITALS: RESP 18
--- NOTE | 2018-01-13 17:47 | CP.PCM.PN ---
Subjective - Date & Time of Evaluation Date of Evaluation: 01/13/18 Time of Evaluation: 17:40 - Subjective Subjective: I D NOTE IMPROVING BUT WBC IS SILL 18(STEROIDS ?) CONTINUE SAME RX Objective - Vital Signs/Intake and Output Vital Signs (last 24 hours): Temp Pulse Resp BP Pulse Ox 98.6 F 82 18 123/67 99 01/13/18 16:35 01/13/18 16:35 01/13/18 16:35 01/13/18 16:35 01/13/18 16:35 - Medications Medications: Current Medications Enoxaparin Sodium (Lovenox) 40 mg SC DAILY JIN PRN Reason: Protocol Last Admin: 01/13/18 09:58 Dose: 40 mg Levofloxacin/Dextrose (Levaquin 500mg) 500 mg in 100 mls @ 100 mls/hr IVPB DAILY JIN PRN Reason: Protocol Last Admin: 01/13/18 09:59 Dose: 100 mls/hr Vancomycin HCl 1 gm/ Sodium (Chloride) 250 mls @ 166.667 mls/hr IVPB Q12 JIN Last Admin: 01/13/18 09:57 Dose: 166.667 mls/hr Clindamycin Phosphate (Cleocin) 600 mg in 50 mls @ 50 mls/hr IVPB Q12 JIN PRN Reason: Protocol Last Admin: 01/13/18 09:56 Dose: 50 mls/hr Levalbuterol HCl (Xopenex) 0.63 mg IH Q8 PRN PRN Reason: Wheezing Prednisone (Prednisone Tab) 10 mg PO DAILY [facility] Fluticasone/Salmeterol (Advair Diskus 250/50) 1 puff INH Q12 JIN Last Admin: 01/13/18 09:56 Dose: 1 puff - Labs Labs: 01/12/18 05:25 01/12/18 05:25 PT 12.1 Seconds (9.8-13.1) 01/10/18 18:32 INR 1.1 (0.9-1.2) 01/10/18 18:32 APTT 28.1 Seconds (25.6-37.1) 01/10/18 18:32
[2018-01-14 05:35] LABS: BASO % 0.1 % (0.0-2.0); HEMOGLOBIN 11.7 g/dL (12.0-18.0); LYMPH # 0.8 K/uL (1.0-4.3); LYMPH % 6.1 % (20.0-40.0); MEAN CELL VOLUME 85.6 fl (80.0-94.0); MEAN CORPUSCULAR HEMOGLOBIN 28.7 pg (27.0-31.0); MEAN CORPUSCULAR HGB CONC 33.5 g/dL (33.0-37.0); MEAN PLATELET VOLUME 7.7 fl (7.2-11.7); MONO % 7.6 % (0.0-10.0); NEUT # 11.7 K/uL (1.8-7.0); NEUT % 86.2 % (50.0-75.0); RBC 4.07 Mil/uL (4.40-5.90); RED CELL DISTRIBUTION WIDTH 14.5 % (11.5-14.5); WHITE BLOOD COUNT 13.6 K/uL (4.8-10.8)
[2018-01-14] MEDS: Fluticasone-Salmeterol 250-50mcg Diskus INH SCH (09:19)
[2018-01-14] MEDS: Enoxaparin 40 mg Syringe SC SCH (09:20)
[2018-01-14] MEDS: Clindamycin 600mg/50ml D5W 600 MG/50 ML VIAL IVPB SCH (09:24)
--- NOTE | 2018-01-14 10:01 | CP.PCM.DIS ---
Provider - Provider Date of Admission: 01/10/18 18:59 Attending physician: Mikey Reddy MD Time Spent in preparation of Discharge (in minutes): 30 Diagnosis - Discharge Diagnosis (1) Pulmonary fibrosis Status: Acute (2) COPD exacerbation Status: Acute (3) Hypertension Status: Acute (4) Pneumonia Status: Acute (5) Severe sepsis Status: Acute Hospital Course - Lab Results Lab Results: Micro Results 01/10/18 18:32 Blood Blood Culture - Preliminary NO GROWTH AFTER 3 DAYS 01/11/18 08:37 Sputum Gram Stain - Final Most Recent Lab Values WBC 13.6 K/uL (4.8-10.8) H 01/14/18 04:45 RBC 4.07 Mil/uL (4.40-5.90) L 01/14/18 04:45 Hgb 11.7 g/dL (12.0-18.0) L 01/14/18 04:45 Hct 34.8 % (35.0-51.0) L 01/14/18 04:45 MCV 85.6 fl (80.0-94.0) 01/14/18 04:45 MCH 28.7 pg (27.0-31.0) 01/14/18 04:45 MCHC 33.5 g/dL (33.0-37.0) 01/14/18 04:45 RDW 14.5 % (11.5-14.5) 01/14/18 04:45 Plt Count 210 K/uL (130-400) 01/14/18 04:45 MPV 7.7 fl (7.2-11.7) 01/14/18 04:45 Neut % (Auto) 86.2 % (50.0-75.0) H 01/14/18 04:45 Lymph % (Auto) 6.1 % (20.0-40.0) L 01/14/18 04:45 Wilkin % (Auto) 7.6 % (0.0-10.0) 01/14/18 04:45 Eos % (Auto) 0.0 % (0.0-4.0) 01/14/18 04:45 Baso % (Auto) 0.1 % (0.0-2.0) 01/14/18 04:45 Neut # (Auto) 11.7 K/uL (1.8-7.0) H 01/14/18 04:45 Lymph # (Auto) 0.8 K/uL (1.0-4.3) L 01/14/18 04:45 Wilkin # (Auto) 1.0 K/uL (0.0-0.8) H 01/14/18 04:45 Eos # (Auto) 0.0 K/uL (0.0-0.7) 01/14/18 04:45 Baso # (Auto) 0.0 K/uL (0.0-0.2) 01/14/18 04:45 Neutrophils % (Manual) 94 % (42-75) H 01/12/18 05:25 Band Neutrophils % 1 % (0-2) 01/12/18 05:25 Lymphocytes % (Manual) 3 % (20-50) L 01/12/18 05:25 Reactive Lymphs % 8 % (0-0) H 01/10/18 18:32 Monocytes % (Manual) 2 % (0-10) 01/12/18 05:25 Platelet Estimate Normal (NORMAL) 01/12/18 05:25 RBC Morphology Normal (NORMAL) 01/10/18 18:32 ESR 61 mm/hr (0-20) H 01/11/18 07:30 PT 12.1 Seconds (9.8-13.1) 01/10/18 18:32 INR 1.1 (0.9-1.2) 01/10/18 18:32 APTT 28.1 Seconds (25.6-37.1) 01/10/18 18:32 pO2 16 mm/Hg (30-55) L 01/10/18 19:29 VBG pH 7.36 (7.32-7.43) 01/10/18 19:29 VBG pCO2 53 mmHg (40-60) 01/10/18 19:29 VBG HCO3 25.2 mmol/L 01/10/18 19:29 VBG Total CO2 31.5 mmol/L (22-28) H 01/10/18 19:29 VBG O2 Sat (Calc) 27.3 % (40-65) L 01/10/18 19:29 VBG Base Excess 3.1 mmol/L (0.0-2.0) H 01/10/18 19:29 VBG Potassium 4.4 mmol/L (3.6-5.2) 01/10/18 19:29 Sodium 135.0 mmol/L (132-148) 01/10/18 19:29 Chloride 97.0 mmol/L (98-107) L 01/10/18 19:29 Glucose 138 mg/dL (75-110) H 01/10/18 19:29 Lactate 2.9 mmol/L (0.7-2.1) H 01/10/18 19:29 FiO2 21.0 % 01/10/18 19:29 Crit Value Called To dr rui sky 01/10/18 19:29 Crit Value Called By kadie 01/10/18 19:29 Blood Gas Notified Time 195101/10/18 19:29 Sodium 139 mmol/l (132-148) 01/12/18 05:25 Potassium 4.8 MMOL/L (3.6-5.0) 01/12/18 05:25 Chloride 106 mmol/L (98-107) 01/12/18 05:25 Carbon Dioxide 23 mmol/L (22-30) 01/12/18 05:25 Anion Gap 15 (10-20) 01/12/18 05:25 BUN 31 mg/dl (9-20) H 01/12/18 05:25 Creatinine 1.5 mg/dl (0.8-1.5) 01/12/18 05:25 Est GFR ( Amer) 54 01/12/18 05:25 Est GFR (Non-Af Amer) 45 01/12/18 05:25 Random Glucose 207 mg/dL (75-110) H 01/12/18 05:25 Lactic Acid 2.7 MMOL/L (0.7-2.1) H 01/12/18 05:25 Calcium 8.7 mg/dL (8.4-10.2) 01/12/18 05:25 Total Bilirubin 1.2 mg/dl (0.2-1.3) 01/10/18 18:32 AST 26 U/L (17-59) 01/10/18 18:32 ALT 26 U/L (21-72) 01/10/18 18:32 Alkaline Phosphatase 76 U/L (38-126) 01/10/18 18:32 Troponin I < 0.0120 ng/mL (0.00-0.120) 01/10/18 18:32 NT-Pro-B Natriuret Pep 156 pg/ml (0-900) 01/10/18 18:32 Total Protein 9.0 G/DL (6.3-8.2) H 01/10/18 18:32 Albumin 4.5 g/dL (3.5-5.0) 01/10/18 18:32 Globulin 4.5 gm/dL (2.2-3.9) H 01/10/18 18:32 Albumin/Globulin Ratio 1.0 (1.0-2.1) 01/10/18 18:32 Venous Blood Potassium 4.4 mmol/L (3.6-5.2) 01/10/18 19:29 Urine Color Yellow (YELLOW) 01/10/18 18:39 Urine Clarity Clear (Clear) 01/10/18 18:39 Urine pH 7.0 (5.0-8.0) 01/10/18 18:39 Ur Specific [place] 1.024 (1.003-1.030) 01/10/18 18:39 Urine Protein 30 mg/dL (NEGATIVE) 01/10/18 18:39 Urine Glucose (UA) Neg mg/dL (Normal) 01/10/18 18:39 Urine Ketones Negative mg/dL (NEGATIVE) 01/10/18 18:39 Urine Blood Trace (NEGATIVE) 01/10/18 18:39 Urine Nitrate Negative (NEGATIVE) 01/10/18 18:39 Urine Bilirubin Negative (NEGATIVE) 01/10/18 18:39 Urine Urobilinogen 4.0 mg/dL (0.2-1.0) 01/10/18 18:39 Ur Leukocyte Esterase Neg Kaitlin/uL (Negative) 01/10/18 18:39 Urine RBC (Auto) 12 /hpf (0-3) H 01/10/18 18:39 Urine Microscopic WBC 1 /hpf (0-5) 01/10/18 18:39 Vancomycin Trough 12.6 ug/mL (5.0-10.0) H 01/13/18 20:30 - Hospital Course Hospital Course: CLINICALLY IMPROVED Discharge Exam - Head Exam Head Exam: ATRAUMATIC, NORMAL INSPECTION, NORMOCEPHALIC - Eye Exam Eye Exam: EOMI, Normal appearance, PERRL Pupil Exam: NORMAL ACCOMODATION, PERRL - GI/Abdominal Exam GI & Abdominal Exam: Normal Bowel Sounds - Rectal Exam Rectal Exam: NORMAL INSPECTION - Neurological Exam Neurological exam: Alert, CN II-XII Intact, Normal Gait, Oriented x3, Reflexes Normal - Psychiatric Exam Psychiatric exam: Normal Affect, Normal Mood - Skin Skin Exam: Dry, Intact, Normal Color, Warm Discharge Plan - Follow Up Plan Condition: FAIR Disposition: HOME/ ROUTINE Patient education suggested?: Yes Additional Instructions: DISCHARGE TODAY FOLLOW UP WITH DR REDDY IN 1 WEEK
[2018-01-14] MEDS: levoFLOXacin 500 mg in D5W 500 MG/100 ML BAG IVPB SCH (10:44)
[2018-01-14 12:21] VITALS: BP 117/67; PULSE 73; TEMP 97.5; O2SAT 99
== END 2018-01-14 15:15 | disposition home or self-care (01) | DRG 871 ==
LOC: H.ER 15:30 → H.ERHOLD 18:59 → H.TEL 01-11 02:54
PROVIDERS: ADMIT Internal Medicine Pulmonary Disease; ATTEND Internal Medicine Pulmonary Disease
PROC: 3E0F7GC Introduction of Other Therapeutic Substance into Respiratory Tract, Via Natural or Artificial Opening (ICD-10-PCS; principal; 2018-01-11)
DX: A41.9 Sepsis, unspecified organism (principal); J18.9 Pneumonia, unspecified organism; J44.0 Chronic obstructive pulmonary disease with (acute) lower respiratory infection; J44.1 Chronic obstructive pulmonary disease with (acute) exacerbation; F17.200 Nicotine dependence, unspecified, uncomplicated; I10 Essential (primary) hypertension; J84.10 Pulmonary fibrosis, unspecified; R65.20 Severe sepsis without septic shock